=== PATIENT | male | born 1940 | race Caucasian/White ===

== ENCOUNTER 2016-12-08 10:20 | Day surgery (SDC) | payer MEDICARE, OTHER ==
[~2016-12-08 10:20] MED LIST: Buffered Lidocaine 1% SYR 3ML* 3 ML/SYR SYRINGE INTRADERM ONE; Sodium Citrate/Citric Acid* 15 ML UDC PO ONE
[2016-12-08] MEDS ORDERED: Sodium Citrate/Citric Acid* 15 ML UDC ONE (10:39)
[2016-12-08] MEDS ORDERED: Oxymetazoline 0.05% NASAL SPR* 15 ML BTL ONE (12:06)
[2016-12-08] MEDS ORDERED: Lidocaine 2% EPI 1:200000 MPF* 20 ML VIAL ONE (12:07)
[2016-12-08] MEDS ORDERED: fentaNYL* 50 MCG/ML 2 ML VIAL (100 MCG VIAL) ONE (13:06)
[2016-12-08] MEDS ORDERED: Lidocaine 2% PF * 5 ML VIAL ONE (13:06)
[2016-12-08] MEDS ORDERED: Propofol* 10 MG/ML 20 ML BTL IV PUSH ONE (13:06)
[2016-12-08] MEDS ORDERED: Dexamethasone IV* 4 MG/ML 1 ML (4 MG) ONE (13:06)
[2016-12-08] MEDS ORDERED: Ondansetron INJ* 2 MG/ML VIAL IV PRN (13:38)
[2016-12-08] MEDS ORDERED: fentaNYL* 50 MCG/ML 2 ML VIAL (100 MCG VIAL) IV PRN (13:38)
[2016-12-08] MEDS ORDERED: Gelatin ADSORBABLE (OPHTH)* OPHTH.FILM ONE (13:45)
[2016-12-08] MEDS ORDERED: Labetalol IV* 5 MG/ML 20 ML VIAL ONE (14:23)
[2016-12-08 15:36] VITALS: BP 139/79
--- NOTE | 2016-12-09 12:16 | OP ---
DATE OF OPERATION: 12/08/16 - [facility] DATE OF : 42 SURGEON: Pete Blake MD ANESTHESIOLOGIST: Leonid Crespo DO ANESTHESIA: General PRE-OP DIAGNOSES: 1. Nasal dyspnea. 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 POST-OP DIAGNOSES: 1. Nasal dyspnea. 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 OPERATIVE PROCEDURE: Septal dermoplasty and repair of left nasal valve collapse. BRIEF HISTORY: This 76-year-old gentleman who previously had nasal surgery 3 times had a synechiae between the lateral nasal valve region and collapse of the nasal valve causing nasal dyspnea on the left side bothersome to the patient. DESCRIPTION OF PROCEDURE: The patient was taken to the operating room. General anesthetic was given. The patient was intubated with LMA. Nose was decongested with Afrin placed pledgets. Subsequently, infiltrated 2% lidocaine with 1:200,000 epinephrine into the septal mucosa then into the aerations and into the intercartilaginous incision between the lateral aidan and the upper lateral cartilage. I subsequently lysed the adhesions and there was quite a significant mucosal defect. Once this was done, I resected a portion of the cartilage for grafting into the nasal valve region as a bridger type graft. Subsequently, since there was a defect, I harvested a skin graft from the left anterior to the ear to the dermal graft, and then I inserted this into the defect in the nasal valve region superiorly and secured in place with 3-0 chromic sutures multiple mattress type. I then fashioned a small piece of stenting of Jaylan splint, which was coated with Gelfilm and I placed it between the upper aidan and lower aidan junction trying to reduce the chances of readhesion. Once this was secured in place with 2-0 silk, I then turned my attention to the left nasal valve region. I made a little pocket into the junction over the upper lateral cartilage and the lower lateral cartilage at the lower aidan and then I placed in a julissa-shaped piece of cartilage then the pocket was closed with chromic. The patient tolerated this procedure without any complications. Minimal blood loss. The patient was then awakened and sent to recovery room in stable condition. Instrument and sponge counts were correct. Blood loss was minimal. [id number]/[facility] #: [id number] [facility]
== END 2016-12-08 15:40 | disposition home or self-care (01) ==
LOC: OR 10:20
PROVIDERS: ATTEND Otolaryngology
DX: M95.0 Acquired deformity of nose (principal); J34.89 Other specified disorders of nose and nasal sinuses; G47.33 Obstructive sleep apnea (adult) (pediatric); I10 Essential (primary) hypertension
CPT/HCPCS: A9270-GY; J1100; J2704; J3010

== ENCOUNTER 2018-11-22 13:54 | Emergency (ER) | payer MEDICARE, OTHER ==
[2018-11-22 14:19] VITALS: BP 133/77
--- NOTE | 2018-11-22 14:42 | UC ---
UC General HPI - HPI Summary HPI Summary: sudden soreness to upper edge of belly button x 2 days. no abdominal pain. no fever. no n/v/d. admits to mild swelling at site. - History of Current Complaint Chief Complaint: UCAbdominalPain Stated Complaint: STOMACH CONCERN - SKIN Time Seen by Provider: 11/22/18 14:35 Hx Obtained From: Patient Pain Intensity: 4 - Allergy/Home Medications Allergies/Adverse Reactions: Allergies Allergy/AdvReac Type Severity Reaction Status Date / Time No Known Allergies Allergy Verified 11/22/18 14:06 PMH/Surg Hx/FS Hx/Imm Hx Endocrine History: Dyslipidemia Cardiovascular History: Hypertension, Other - valve replaced - Surgical History Surgical History: Yes Surgery Procedure, Year, and Place: 1993 BILATERAL KNEE REPLACEMENT, [place]. 2003 LAPAROSCOPIC BILATERAL INGUINAL HERNIA REPAIR WITH MESH, [facility] [place]. 2004 OPEN REPAIR RECURRENT RIGHT INGUINAL HERNIA WITH MESH, [facility] [place]. 2011 OPEN HEART SURGERY WITH AORTIC VALVE REPLACEMENT, [place], [facility]. 2011 SEPTOPLASTY, INFERIOR TURBINATE REDUCTION AND OUTFRACTURE, [facility] [place]. 2013 LEFT ROTATOR CUFF REPAIR, [place]. BILATERAL CATARACT EXTRACTION WITH IOL IMPLANTS, [facility] [place]. COLONOSCOPY, [place] - Family History Known Family History: Positive: Cardiac Disease, Hypertension - Social History Alcohol Use: Occasionally Substance Use Type: None Smoking Status (MU): Former Smoker Type: Cigarettes Amount Used/How Often: < 1PPD X 5-6 YEARS Length of Time of Smoking/Using Tobacco: 5-6 YEARS Have You Smoked in the Last Year: No When Did the Patient Quit Smoking/Using Tobacco: 1969'S - Immunization History Most Recent Tetanus Shot: 2012 Review of Systems All Other Systems Reviewed And Are Negative: Yes Constitutional: Positive: Negative Skin: Positive: Negative Eyes: Positive: Negative ENT: Positive: Negative Respiratory: Positive: Negative Cardiovascular: Positive: Negative Gastrointestinal: Negative: Abdominal Pain, Vomiting, Diarrhea, Nausea Genitourinary: Positive: Negative Motor: Positive: Negative Neurovascular: Positive: Negative Musculoskeletal: Positive: Negative Neurological: Positive: Negative Psychological: Positive: Negative Physical Exam Triage Information Reviewed: Yes Appearance: Well-Appearing Vital Signs: Initial Vital Signs Temp 98.2 F 11/22/18 14:13 Pulse 72 11/22/18 14:13 Resp 20 11/22/18 14:13 BP 133/77 11/22/18 14:13 Pulse Ox 97 01/30/19 14:13 Vital Signs Reviewed: Yes Eyes: Positive: Conjunctiva Clear ENT: Positive: Normal ENT inspection Neck: Positive: Supple, Nontender Respiratory: Positive: Lungs clear, Normal breath sounds Cardiovascular: Positive: RRR Abdomen Description: Positive: Other: - Upper half of umbilical area is mildly swollen. It is firm and tender with palpation. No red or drainage.. Negative: No Organomegaly, CVA Tenderness (R), CVA Tenderness (L), Distended, Guarding, Hepatomegaly, Peritoneal Signs, Pulsatile Mass, Splenomegaly Bowel Sounds: Positive: Present Musculoskeletal: Positive: ROM Intact Neurological: Positive: Alert Psychological: Positive: Age Appropriate Behavior Skin Exam: Normal Skin: Negative: Rashes Diagnostics - Radiology No standard instances Radiology Interpretation Completed By: Radiologist - abdominal u/s limited= IMPRESSION: NO HERNIA IS SEEN, IF THE PATIENT'S SYMPTOMS PERSIST CONSIDER CT IMAGING FOR FURTHER EVALUATION. ct abd/pelvis=No hernia is identified. No evidence of obstructive uropathy is noted. Course/Dx - Course Course Of Treatment: hx and pe d/w dr lopez. he examine pt post u/s. we agreed to non contrast CT. - Differential Dx - Multi-Symptom Differential Diagnoses: Other - mm strain. hernia. no concern for infection. there was no hernia on u/s or CT. - Diagnoses Provider Diagnosis: Abdominal wall strain Discharge - Sign-Out/Discharge Documenting (check all that apply): Patient Departure All imaging exams completed and their final reports reviewed: Yes - Discharge Plan Condition: Stable Disposition: HOME Patient Education Materials: Muscle Strain (ED) Referrals: Gray Rodríguez MD [Primary Care Provider] - 7 Days - Billing Disposition and Condition Condition: STABLE Disposition: Home
== END 2018-11-22 15:55 | disposition home or self-care (01) ==
LOC: UCCORT 13:54
DX: S39.011A Strain of muscle, fascia and tendon of abdomen, initial encounter (principal); X58.XXXA Exposure to other specified factors, initial encounter; Y92.9 Unspecified place or not applicable; Z95.2 Presence of prosthetic heart valve; Z96.653 Presence of artificial knee joint, bilateral; Z87.891 Personal history of nicotine dependence
CPT/HCPCS: 74176; 76705; 99211; G0463

== ENCOUNTER 2019-02-02 11:09 | Emergency (ER) | payer MEDICARE, OTHER ==
[2019-02-02 11:52] VITALS: BP 135/65
--- NOTE | 2019-02-02 11:58 | UC ---
UC General HPI - HPI Summary HPI Summary: L ear irritated on and off for 2 months. Pt notes it seemed dry and itchy. he placed some drops of oil in the ear which seemed to help. his network designer suggested he have his ears checked. they felt the L looked red. no uri, fever or discharge f4rom the ears. - History of Current Complaint Stated Complaint: BILATERAL EAR CONCERN Time Seen by Provider: 02/02/19 11:50 Hx Obtained From: Patient Associated Signs & Symptoms: Negative: Fever - Allergy/Home Medications Allergies/Adverse Reactions: Allergies Allergy/AdvReac Type Severity Reaction Status Date / Time No Known Allergies Allergy Verified 02/02/19 11:48 PMH/Surg Hx/FS Hx/Imm Hx Endocrine History: Dyslipidemia Cardiovascular History: Hypertension - Surgical History Surgical History: Yes Surgery Procedure, Year, and Place: 1993 BILATERAL KNEE REPLACEMENT, [place]. 2003 LAPAROSCOPIC BILATERAL INGUINAL HERNIA REPAIR WITH MESH, [facility] [place]. 2004 OPEN REPAIR RECURRENT RIGHT INGUINAL HERNIA WITH MESH, [facility] [place]. 2011 [facility] 2011 SEPTOPLASTY, INFERIOR TURBINATE REDUCTION AND OUTFRACTURE, [facility] [place]. 2013 LEFT ROTATOR CUFF REPAIR, [place]. BILATERAL CATARACT EXTRACTION WITH IOL IMPLANTS, [facility] [place]. COLONOSCOPY, [place] - Family History Known Family History: Positive: Cardiac Disease, Hypertension - Social History Occupation: Retired Alcohol Use: Occasionally Substance Use Type: None Smoking Status (MU): Former Smoker Type: Cigarettes Amount Used/How Often: < 1PPD X 5-6 YEARS Length of Time of Smoking/Using Tobacco: 5-6 YEARS Have You Smoked in the Last Year: No When Did the Patient Quit Smoking/Using Tobacco: - Immunization History Most Recent Tetanus Shot: 2012 Review of Systems All Other Systems Reviewed And Are Negative: Yes ENT: Positive: Other - L ear irritation Physical Exam Triage Information Reviewed: Yes Appearance: Well-Appearing Vital Signs Reviewed: Yes Eyes: Positive: Conjunctiva Clear ENT: Positive: Pharynx normal, TMs normal, Other - Only scant deep red to brown cerumen in canals. L canal and adjacent external ear are dry. No auricular adenopathy or mastoid tenderness.. Negative: Nasal congestion, Nasal drainage Neck: Positive: Supple, Nontender, No Lymphadenopathy Respiratory: Positive: No respiratory distress Musculoskeletal: Positive: ROM Intact Neurological: Positive: Alert Psychological: Positive: Age Appropriate Behavior Skin Exam: Normal Course/Dx - Differential Dx - Multi-Symptom Differential Diagnoses: Other - No concern for cerumen impaction, mastoiditis or OM. Will tx L ear with cortisporin suspension for the dryness and irriattion. - Diagnoses Provider Diagnosis: Itching of ear Discharge - Sign-Out/Discharge Documenting (check all that apply): Patient Departure All imaging exams completed and their final reports reviewed: No Studies - Discharge Plan Condition: Stable Disposition: HOME Prescriptions: Neomyc/Polym/HC 1% OTIC SUSP* [Cortisporin Otic Susp 1%*] 4 drop LEFT EAR TID 7 Days #1 btl Patient Education Materials: Earache (ED) Referrals: Gray Rodríguez MD [Primary Care Provider] - 7 Days - Billing Disposition and Condition Condition: STABLE Disposition: Home - Attestation Statements Provider Attestation: Per institutional requirements, I have reviewed the chart, however, I was not consulted specifically or made aware of this patient by the midlevel provider. I did not personally evaluate, interact with , or disposition this patient.
== END 2019-02-02 12:14 | disposition home or self-care (01) ==
LOC: UCCORT 11:09
DX: H83.2X2 Labyrinthine dysfunction, left ear (principal); E78.5 Hyperlipidemia, unspecified; I10 Essential (primary) hypertension; Z87.891 Personal history of nicotine dependence
CPT/HCPCS: 99212; G0463

== ENCOUNTER 2019-05-11 08:23 | Emergency (ER) | payer MEDICARE, OTHER ==
[2019-05-11 08:47] VITALS: BP 132/69
--- NOTE | 2019-05-11 09:07 | ED ---
Throat Pain/Nasal Congestion - HPI Summary HPI Summary: 78 yr old male with the complaint of pain in left ear. onset over the past week. He wears hearing aids. He has problems from time to time with wax buildup. He states the left ear is painful every time he tries to put his hearing aid in. He had otitis externa recently in the same ear. - History of Current Complaint Chief Complaint: UCEar Time Seen by Provider: 05/11/19 08:40 - Allergies/Home Medications Allergies/Adverse Reactions: Allergies Allergy/AdvReac Type Severity Reaction Status Date / Time No Known Allergies Allergy Verified 05/11/19 08:47 Home Medications: Home Medications Calcium Citrate 250 mg PO DAILY 05/11/19 [History Confirmed 05/11/19] PMH/Surg Hx/FS Hx/Imm Hx Endocrine/Hematology History: Denies: Hx Diabetes, Hx Thyroid Disease Cardiovascular History: Reports: Hx Hypertension, Hx Valvular Heart Disease - 2012 AORTIC VALVE REPLACEMENT - [facility], Other Cardiovascular Problems/Disorders - CHOLESTEROL CONTROL WITH MEDS Denies: Hx Pacemaker/ICD Respiratory History: Reports: Hx Sleep Apnea Denies: Hx Asthma, Hx Chronic Obstructive Pulmonary Disease (COPD) GI History: Reports: Hx Ulcer - IN THE PAST AGE 21 Sensory History: Reports: Hx Cataracts - HX OF, Hx Contacts or Glasses - GLASSES , Hx Hearing Aid - BILATERAL Opthamlomology History: Reports: Hx Cataracts - HX OF, Hx Contacts or Glasses - GLASSES Psychiatric History: Denies: Hx Eating Disorder, Hx Panic Disorder, Hx of Violent Episodes Against Others - Surgical History Surgery Procedure, Year, and Place: 1993 BILATERAL KNEE REPLACEMENT, [place]. 2003 LAPAROSCOPIC BILATERAL [place]GUIN[place] [facility] [place]PAIR RECURRENT RIGHT [place]GUINAL [place] [facility] [place] 2012 OPEN HEART SURGERY WITH AORTIC VALVE REPLACEMENT, [place], [place]. 2012 SEPTOPLASTY, INFERIOR TURBINATE REDUCTION AND OUTFRACTURE[place] [facility] [place]. 2013 LEFT ROTATOR CUFF REPAIR, [place]. BILATERAL CATARACT [place]TRA[place] WITH [place] IMPLANTS[place] [facility] [place] Hx Anesthesia Reactions: No Infectious Disease History: No Infectious Disease History: Denies: Traveled Outside the [place] in Last 30 Days - Family History Known Family History: Positive: Cardiac Disease, Hypertension - Social History Occupation: Retired Lives: With Family Alcohol Use: Occasionally Substance Use Type: Reports: None Smoking Status (MU): Former Smoker Type: Cigarettes Amount Used/How Often: < 1PPD X 5-6 YEARS Length of Time of Smoking/Using Tobacco: 5-6 YEARS Have You Smoked in the Last Year: No Review of Systems Constitutional: Negative Positive: Ear Ache All Other Systems Reviewed And Are Negative: Yes Physical Exam Triage Information Reviewed: Yes Vital Signs On Initial Exam: Initial Vitals Temp Pulse Resp BP Pulse Ox 97.1 F 71 16 132/69 97 05/11/19 08:44 05/11/19 08:44 05/11/19 08:44 05/11/19 08:44 05/11/19 08:44 Vital Signs Reviewed: Yes Appearance: Positive: Well-Appearing, No Pain Distress Skin: Positive: Warm, Skin Color Reflects Adequate Perfusion Head/Face: Positive: Normal Head/Face Inspection Eyes: Positive: EOMI, KARTHIK ENT: Positive: TMs normal, Other - left external canal with cerumen. Neck: Positive: Nontender Respiratory/Lung Sounds: Positive: Clear to Auscultation, Breath Sounds Present Cardiovascular: Positive: RRR. Negative: Murmur Abdomen Description: Negative: Distended Musculoskeletal: Positive: Strength/ROM Intact Neurological: Positive: Sensory/Motor Intact, Alert, Oriented to Person Place, Time, CN Intact II-III, Normal Gait, Speech Normal Psychiatric: Positive: Normal - Macey Coma Scale Best Eye Response: 4 - Spontaneous Best Motor Response: 6 - Obeys Commands Best Verbal Response: 5 - Oriented Coma Scale Total: 15 Diagnostics - Vital Signs Vital Signs Temp Pulse Resp BP Pulse Ox 05/11/19 08:44 97.1 F 71 16 132/69 97 - Laboratory Lab Statement: Any lab studies that have been ordered have been reviewed, and results considered in the medical decision making process. Re-Evaluation - Re-Evaluation First Eval Re-Evaluation Time: 09:06 Change: Improved Comment: ear wax gone after irrigation. Cortisporin prescribed. EENT Course/Dx - Course Course Of Treatment: 78 yr old with left otitis externa revealed after cleaning wax out. Cortisporin prescribed. - Diagnoses Provider Diagnoses: Otitis externa Discharge - Sign-Out/Discharge Documenting (check all that apply): Patient Departure All imaging exams completed and their final reports reviewed: No Studies - Discharge Plan Condition: Good Disposition: HOME Prescriptions: Neomyc/Polym/HC 1% OTIC SUSP* [Cortisporin Otic Susp 1%*] 4 drop LEFT EAR TID # 1 btl Patient Education Materials: Otitis Externa (ED), Cerumen Impaction (ED) Referrals: Gray Rodríguez MD [Primary Care Provider] - 2 Days - Billing Disposition and Condition Condition: GOOD Disposition: Home
== END 2019-05-11 09:07 | disposition home or self-care (01) ==
LOC: UCCORT 08:23
DX: H60.92 Unspecified otitis externa, left ear (principal); Z97.4 Presence of external hearing-aid; I10 Essential (primary) hypertension; Z95.2 Presence of prosthetic heart valve; Z87.891 Personal history of nicotine dependence
CPT/HCPCS: 99212; G0463

== ENCOUNTER 2019-06-04 09:05 | Emergency (ER) | payer MEDICARE, OTHER ==
--- OUTSIDE RECORDS SUMMARY | 2019-06-04 09:12 | XMS REPORT | Continuity of Care Document ---
:1940 External Reference #:[id number] Author Name Doyle Farah Care Team Providers Name Role Phone Gray Rodríguez MD Primary Care Physician Unavailable Payers Date Identification Numbers Payment Provider Subscriber Policy Number: [id number] Medicare Emigdio Danilo PayID: [id number] [address] [place] [address] Expires: 2016 Policy Number: [id number] [employer] Elena Carrasco PayID: [id number] [address] [place] [address] Policy Number: [id number] [employer] Emigdio Carrasco Group Number: [id number] [address] PayID: [id number] [place] [address] Problems Active Problems Provider Date Impacted cerumen Hao Blake M.D. Onset: 03/08/2016 Deviated nasal septum Hao Blake M.D. Onset: 03/08/2016 Disorder of nasal cavity Hao Blake M.D. 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 Onset: 10/11/2016 Dysphagia Hao Blake M.D. Onset: 11/22/2016 Chronic rhinitis Hao Blake M.D. Onset: 01/17/2017 Diffuse otitis externa Hao Blake M.D. Onset: 11/21/2017 Difficulty breathing Hao Blake M.D. Onset: 04/25/2017 Family History Date Family Member(s) Observation Comments General Heart Murmur Social History Type Date Description Comments Sex Unknown Occupation Catering Coordinator Tobacco Use Start: Unknown Never Smoked Cigarettes Tobacco Use Start: Unknown Never Smoked Cigars Tobacco Use Start: Unknown Never Smoked A Pipe ETOH Use Occasionally consumes alcohol Tobacco Use Start: Unknown Patient has never smoked Smoking Status Reviewed: 05/29/19 Patient has never smoked Allergies, Adverse Reactions, Alerts Description No Known Drug Allergies Medications Active Medications SIG Qnty Indications Ordering Provider Date GTF Ghiomium 100MG 1 tab by mouth Unknown daily Zinc 1 tab by mouth Unknown 50mg Tablets daily Neomycin/Polymyxin/Hydr 4 gtts left ear Unknown o three times a day Synergistic [facility] Unknown [facility] Triple Magnesium 1 tab by mouth Unknown Complex daily 400mg Capsules Ubiquinol 1 by mouth every Unknown 100mg Capsules day Calcium Citrate 1 tab by mouth Unknown 200mg daily Tablets Glucosamine Chondroitin 1 by mouth every Unknown Maximum Strength day Capsules Ezetimibe 1 by mouth every Unknown 10mg Tablets day Venlafaxine HCL ER 1 tab by mouth Unknown 75mg twice daily Caps ER 24HR Amlodipine Besylate 1 by mouth every Unknown 5mg day Tablets Rosuvastatin Calcium 1 by mouth every Unknown 20mg day Tablets Omeprazole 1 by mouth every Unknown 20mg Capsules DR day Aspir-Low 1 by mouth every Unknown 81mg Tablets DR day [place] 3 4 by mouth qd. Unknown 1000mg Capsules Flaxseed Oil 1 by mouth every Unknown 1000mg day Capsules Vitamin D3 Adult 2 tabs chewed Unknown Gummies daily 1000Unit Chewtabs History Medications No Active Medications Unknown 03/08/2016 - 10/11/2016 Simvastatin 1 po qd 90tabs Gray Rodríguez, - 40mg Tablets 03/08/2015 Motrin Ib 1000 MG bid 60tabs Unknown - 500mg Tablets 03/08/2015 Cranberry 1 by mouth every Unknown - 450mg Tablets day 05/28/2019 Liquid Kelp 25 ml po qday Unknown - 05/28/2019 Amoxicillin Take One Capsule Unknown - 500mg By Mouth Three 11/20/2017 Capsules Times A Day Vital Signs Date Vital Result Comment 05/29/2019 11:51am Height 66 inches 5'6" Heart Rate 69 /min BP Systolic Sitting 128 mmHg BP Diastolic Sitting 86 mmHg Respiratory Rate 20 /min Body Temperature 98.6 F Pain Level 0 O2 % BldC Oximetry 92 % 11/21/2017 2:09pm Height 66 inches 5'6" Weight 178.00 lb Heart Rate 72 /min BP Systolic Sitting 126 mmHg BP Diastolic Sitting 74 mmHg Respiratory Rate 16 /min Pain Level 0 BMI (Body Mass Index) 28.7 kg/m2 04/04/2017 2:24pm Height 66 inches 5'6" Weight 178.00 lb Heart Rate 66 /min BP Systolic Sitting 120 mmHg BP Diastolic Sitting 76 mmHg Respiratory Rate 16 /min BMI (Body Mass Index) 28.7 kg/m2 01/17/2017 2:20pm Weight 178.00 lb Heart Rate 80 /min BP Systolic 118 mmHg BP Diastolic 88 mmHg Respiratory Rate 20 /min Pain Level 0 O2 % BldC Oximetry 96 % 12/20/2016 4:08pm BP Systolic Sitting 152 mmHg Recheck-pt to Fup with BP Diastolic Sitting 90 mmHg Recheck-pt to Fup with 12/20/2016 3:49pm Height 66 inches 5'6" Heart Rate 84 /min BP Systolic 148 mmHg BP Diastolic 106 mmHg Respiratory Rate 24 /min Pain Level 6 O2 % BldC Oximetry 97 % 12/13/2016 2:36pm Height 66 inches 5'6" Weight 180.00 lb Heart Rate 82 /min BP Systolic Sitting 124 mmHg BP Diastolic Sitting 80 mmHg Respiratory Rate 18 /min Body Temperature 98.6 F O2 % BldC Oximetry 96 % BMI (Body Mass Index) 29.0 kg/m2 11/22/2016 2:28pm Height 66 inches 5'6" Weight 180.00 lb BP Systolic Sitting 128 mmHg BP Diastolic Sitting 80 mmHg Body Temperature 99.1 F BMI (Body Mass Index) 29.0 kg/m2 10/11/2016 2:57pm Height 66 inches 5'6" Weight 180.00 lb Heart Rate 80 /min BP Systolic 132 mmHg BP Diastolic 66 mmHg BMI (Body Mass Index) 29.0 kg/m2 04/24/2012 11:16am Heart Rate 80 /min BP Systolic Sitting 124 mmHg BP Diastolic Sitting 80 mmHg Procedures Date Code Description Status 12/08/2016 72533 Dermatoplasty Septal Or Intranasal Completed 12/08/2016 75411 Repair Nasal Vestibular Stenosis Completed 12/08/2016 78223 Remove Cartilage For Graft Nasal Septum Completed 11/22/2016 90023 Fibroptic Laryngoscopy Completed 10/11/2016 00889 Remove Impacted Cerumen Completed 03/08/2016 76784 Remove Impacted Cerumen Completed 04/24/2012 62212 Endoscopic Nasal Cautery Completed Encounters Type Date Location Provider Dx Diagnosis Office Visit 11/21/2017 [facility] J34.2 Deviated nasal 2:00p [facility] Atif septum [place] H60.312 Diffuse otitis externa, left ear Office Visit 04/25/2017 2:00p [facility] J31.0 Chronic [facility] Debra rhinitis [place] R06.09 Other forms of dyspnea R13.10 Dysphagia, unspecified Office Visit 04/04/2017 2:00p [facility] J31.0 Chronic [facility] Atif rhinitis Azam R06.09 Other forms of dyspnea R09.81 Nasal congestion Office Visit 11/22/2016 2:30p [facility] J34.2 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 Atif cerumen, Azam bilateral J34.2 Deviated nasal septum Office Visit 04/24/2012 10:30a [facility], [facility]84[facility] Future Appointment(s):06/05/2019 10:45 am - Hao Blake M.D. at [facility] Bjtjuwxf55/29/2018 - Hao Blake M.D.J34.2 Deviated nasal aylgkqB15.312 Diffuse otitis externa, left earComments:After cleaning the ear I instilled some Chloromycetin boric acid powder in the left ear I suggest recheck back in about one week if not improved. We did discussed revision resection of the scar tissueof the septum. He'll call us back to schedule for this it'll have to be done in [place].
[2019-06-04 09:20] VITALS: BP 131/62
--- NOTE | 2019-06-04 09:23 | UC ---
Knee Pain HPI - HPI Summary HPI Summary: 78-year-old male who caught his right heel on a step and he hyperflexed his right knee 2 weeks ago. He states he has had continued pain to the lateral right knee since then however he is able to walk. He wears an elastic knee brace. He has had a right knee replacement approximately 2 years ago. He states normally he is only able to flex his right leg approximately 45 but when he injured it flexed completely which caused the pain to the lateral aspect. - History of Current Complaint Chief Complaint: UCLowerExtremity Stated Complaint: RIGHT KNEE INJURY Time Seen by Provider: 06/04/19 09:19 Hx Obtained From: Patient Onset/Duration: Sudden Onset Severity Initially: Moderate Severity Currently: Mild Pain Intensity: 0 Character: Dull, Aching Aggravating Factor(s): Movement, Weight Bearing Alleviating Factor(s): Rest Associated Signs And Symptoms: Positive: Negative Able to Bear Weight: Yes - Allergies/Home Medications Allergies/Adverse Reactions: Allergies Allergy/AdvReac Type Severity Reaction Status Date / Time No Known Allergies Allergy Verified 06/04/19 09:16 Home Medications: Home Medications Ibuprofen TAB* [Advil TAB*] 400 mg PO Q6H PRN 06/04/19 [History Confirmed ] PMH/Surg Hx/FS Hx/Imm Hx Previously Healthy: Yes Cardiovascular History: Hypertension Psychological History: Depression - Surgical History Surgical History: Yes Surgery Procedure, Year, and Place: 1993 BILATERAL KNEE REPLACEMENT, [place]. 2003 LAPAROSCOPIC BILATERAL INGUINAL HERNIA REPAIR WITH MESH, [facility] [place]. 2004 OPEN REPAIR RECURRENT RIGHT INGUINAL HERNIA WITH MESH, [facility] [place]. 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 2012 SEPTOPLASTY, INFERIOR TURBINATE REDUCTION AND OUTFRACTURE, [facility] [place]. 2013 LEFT ROTATOR CUFF REPAIR, [place]. BILATERAL CATARACT EXTRACTION WITH IOL IMPLANTS, [facility] [place]. COLONOSCOPY, [place] - Family History Known Family History: Positive: Cardiac Disease, Hypertension - Social History Alcohol Use: Occasionally Substance Use Type: None Smoking Status (MU): Former Smoker Type: Cigarettes Amount Used/How Often: < 1PPD X 5-6 YEARS Length of Time of Smoking/Using Tobacco: 5-6 YEARS Have You Smoked in the Last Year: No When Did the Patient Quit Smoking/Using Tobacco: - Immunization History Most Recent Tetanus Shot: 2013 Review of Systems All Other Systems Reviewed And Are Negative: Yes Motor: Positive: Decreased ROM - Patient normally has decreased flexion of the right leg and knee since he had the knee replacement. Neurovascular: Positive: Negative Musculoskeletal: Positive: Decreased ROM Neurological: Positive: Negative Psychological: Positive: Negative Is Patient Immunocompromised?: No Physical Exam Triage Information Reviewed: Yes Appearance: Well-Appearing, No Pain Distress, Well-Nourished Vital Signs: Initial Vital Signs Temp 98.1 F 06/04/19 09:12 Pulse 75 06/04/19 09:12 Resp 18 06/04/19 09:12 BP 131/62 06/04/19 09:12 Pulse Ox 96 06/04/19 09:12 Vital Signs Reviewed: Yes Musculoskeletal: Positive: Strength Intact, No Edema, ROM Limited @ - Patient normally has limited right knee flexion to approximately 45., Other: - Mild tenderness on palpation to the lateral aspect of his right knee, no deformity, erythema, bruising or swelling is noted Neurological: Positive: Alert, Muscle Tone Normal - Good peripheral pulses neuro sensation capillary refill. Psychological Exam: Normal Skin Exam: Normal Knee Pain Course/Dx - Course Course Of Treatment: Right knee x-ray:BONE DENSITY: There is diffuse osteopenia. BONES: The patient is status post right knee arthroplasty. There is periprosthetic lucency along the tibial component.. JOINTS: The patient is status post right knee arthroplasty. ALIGNMENT: There is no dislocation. SOFT TISSUES: There is peripheral arterial calcification. OTHER FINDINGS: None. IMPRESSION: 1. OSTEOPENIA. 2. STATUS POST RIGHT KNEE ARTHROPLASTY, WITH PERIPROSTHETIC LUCENCY ALONG THE TIBIAL COMPONENT CONCERNING FOR LOOSENING. 3. PERIPHERAL ARTERIAL DISEASE. 4. NO ACUTE OSSEOUS INJURY. THE DEGREE OF OSTEOPENIA MAY MAKE A NONDISPLACED FRACTURE RADIOGRAPHICALLY OCCULT. IF SYMPTOMS PERSIST, RECOMMEND REPEAT IMAGING. . The patient prefers to see his specialist in [place] for further follow-up. He may use the knee brace as necessary and ambulate as pain permits. - Differential Dx/Diagnosis Provider Diagnosis: Strain of right knee Discharge - Sign-Out/Discharge Documenting (check all that apply): Patient Departure All imaging exams completed and their final reports reviewed: Yes - Discharge Plan Condition: Good Disposition: HOME Patient Education Materials: Knee Pain (ED) Referrals: Gray Rodríguez MD [Primary Care Provider] - Additional Instructions: You may try heat to the sore area and then follow-up with your orthopedist in [place]. Call today and make an appointment. - Billing Disposition and Condition Condition: GOOD Disposition: Home - Attestation Statements Provider Attestation: This patient was not seen by me. I was available for consult. ROJELIO
== END 2019-06-04 10:15 | disposition home or self-care (01) ==
LOC: UCCORT 09:05
DX: S83.91XA Sprain of unspecified site of right knee, initial encounter (principal); W23.0XXA Caught, crushed, jammed, or pinched between moving objects, initial encounter; Y93.01 Activity, walking, marching and hiking; Y92.9 Unspecified place or not applicable; Z96.653 Presence of artificial knee joint, bilateral; I10 Essential (primary) hypertension; Z87.891 Personal history of nicotine dependence
CPT/HCPCS: 99211; G0463

== ENCOUNTER 2019-11-18 07:52 | Emergency (ER) | payer MEDICARE, OTHER ==
--- OUTSIDE RECORDS SUMMARY | 2019-11-18 08:04 | XMS REPORT | Summary of Care ---
:1940 Author Organization [facility] Address [address] [facility] [place] [address] Care Team Providers Name Role Phone Gray Rodríguez Primary Care Provider Salvador Villatoro MD Unavailable Miguel Angel Singh Unavailable Laura Campbell RN Unavailable Unavailable Reason for Visit Reason Comments Pre-op Exam Patient is having surgery for chronic nasal congestion. 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 0 Active 220 MG Oral Cap Aspirin 81 MG Oral Take 1 Tab by 30 Tab 0 07/23/2015 Active TabIndications: S/P AVR mouth DAILY. 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 Oral Tab Flaxseed, Linseed, Take by mouth. 0 Active (FLAX SEED OIL) 1000 MG Oral Cap Oyfetlo-Jfnoxncez-Jbsfc Take by mouth. 0 Active in D (CALCIUM MAGNESIUM PO) Avanafil (STENDRA) 200 Take by mouth 0 Active MG Oral Tab NEEDED. venlafaxine (EFFEXOR TAKE 1 CAPSULE 180 Cap 3 11/29/2018 Active XR) 150 MG Oral CAPSULE BY MOUTH TWICE SR 24 HR DAILY Rosuvastatin Calcium Take 1 Tab by 90 Tab 3 03/01/2019 Active (CRESTOR) 20 MG Oral mouth DAILY. 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 silver sulfadiazine Apply to burn 50 g 1 08/21/2019 Active (THERMAZENE, SILVADENE) site on right 1 % Apply externally foot twice a Cream day Magnesium 400 MG Oral Take 1 Tab by 0 Active Tab mouth DAILY. Cejeiop-Afxiwv-Eg Take 1 Tab by 0 Active Chondr-MSM mouth DAILY. [id number] MG Oral Tab Zinc 50 MG Oral Cap Take 1 Cap by 0 Active mouth DAILY. GTF CHROMIUM PO Take 100 mcg by 0 Active mouth DAILY. Amoxicillin 500 MG Oral Take 4 Tabs by 4 Tab 11 10/25/2019 10/26/2019 Active Tab mouth ONE TIME for 1 dose. 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 Appropriate heart rate and blood pressure response to exercise. Normally functioning bioprosthetic aortic valve. Cardiac cath 2012 non obstructive disease This test is equivocal for ischemia by symptoms (limiting dyspnea), negative for ischemia by EKG, and negative for ischemia by echocardiographic imaging at an adequate cardiac workload, as described. Dyspnea in the absence of EKG changes and echocardiographic evidence of ischemia most likely represents non-coronary pathology and/or deconditioning. Essential hypertension, benign 01/15/2014 S/P AVR (aortic valve replacement) 12/25/2012 Overview: 2011 Colon polyps 07/06/2012 Overview: Colonoscopy 2009 recommended repeat colonoscopy 2012 Impotence of organic origin 03/23/2011 History of tobacco use 02/17/2010 Obesity 02/11/2010 Overview: BMI 30 10 Mixed hyperlipidemia 11/06/2007 Osteoarthritis, knee 11/06/2007 Overview: Bilateral knee replacement RISHABH Condon 2001 documented as of this encounter (statuses as of 10/25/2019) Resolved Problems Problem Noted Date Resolved Date Coronary artery disease involving lovelock heart 11/14/2018 10/25/2019 Depression with anxiety 07/01/2015 08/30/2017 Trigger thumb 02/16/2012 07/01/2014 Depression 02/17/2010 03/23/2011 Inguinal hernia 02/17/2010 08/02/2016 Anxiety 10/18/2008 03/23/2011 Severe aortic stenosis 03/11/2008 07/01/2014 Overview: 06/08/10: Echocardiogram Aortic Valve The mean and peak gradients across the aortic valve are 44 mmHg and 67 mmHg respectively. The aortic valve is tricuspid , severely calcified, with severely restricted mobility. Aortic valve are by continuity equation is .8cm2. FINAL IMPRESSION: Severe Calcific Aortic Stenosis Stress echocardiogram negative 2011 Normal LV systolic function, LVEF 60% Normal atria, right heart No significant mitral valve disease No effusion compared to previous echo aortic stenosis has worsened Palpitations 11/06/2007 02/11/2010 Aortic valve disorders 11/06/2007 03/11/2008 Hemorrhage of gastrointestinal tract, unspecified 03/07/2007 02/11/2010 Trigger finger (acquired) 01/03/2007 08/15/2013 documented as of this encounter (statuses as of 10/25/2019) Immunizations Name Administration Dates Next Due Influenza (IM) Preservative Free 08/24/2017, 07/26/2011 Influenza Vaccine 65 Yrs + 08/21/2019 Influenza Vaccine High Dose 10/30/2018, 10/30/2017, 08/02/2016, 07/01/2014 Influenza Vaccine Whole 08/29/2007 Influenza Virus Vaccine Pres Free 6-35 07/06/2012 Months PNEUMOCOCCAL POLYSACCHARIDE VACCINE 02/11/2010 Pneumococcal Conjugate(13 Valent) 08/02/2016 TDAP Vaccine 08/21/2019 TETANUS & DIPHTHERIA TOXOID (OVER 7 03/19/2009 YRS) Tetanus Vaccine 01/10/2007 ZOSTER (ZOSTAVAX) VACCINE 07/03/2013 dT Vaccine 01/10/2007 documented as of this encounter Social History Tobacco Use Types Packs/Day Years Used Date Former Smoker Cigarettes 0.25 2 Quit: 10/24/1961 Smokeless Tobacco: Never Used Comments: pt quit smoking approx 40 yrs ago. Alcohol Use Drinks/Week oz/Week Comments No 0 Standard drinks or equivalent 0.0 drinks socially-approx 1-2 drinks q week Social Isolation Answer Date Recorded In a typical week, how many times do you Not asked talk on the phone with family, friends, or neighbors? How often do you get together with friends More than three times a week 11/27 or relatives? How often do you attend buddhism or More than 4 times per year 11/27/2018 synagogue services? Do you belong to any clubs or Yes 11/27/2018 organizations such as buddhism groups, unions, fraternal or athletic groups, or school groups? How often do you attend meetings of the 1 to 4 times per year 11/27/2018 clubs or organizations you belong to? Are you now , , , 11/27/2018 , never or living with a partner? Physical Activity Answer Date Recorded On average, how many days per week do you engage in moderate to 0 days 2018 strenuous exercise (like walking fast, running, jogging, dancing, swimming, biking, or other activities that cause a light or heavy sweat)? On average, how many minutes do you engage in exercise at this 0 min 2018 level? Stress Answer Date Recorded Do you feel stress - tense, restless, nervous, or anxious, Not at all 2018 or unable to sleep at night because your mind is troubled all the time - these days? Financial Resource Strain Answer Date Recorded How hard is it for you to pay for the very basics like Not hard at all 2018 food, housing, medical care, and heating? Intimate Partner Violence Answer Date Recorded Within the last year, have you been afraid of your partner or No 11/27/2018 ex-partner? Within the last year, have you been humiliated or emotionally No 11/27/2018 abused in other ways by your partner or ex-partner? Within the last year, have you been kicked, hit, slapped, or No 11/27/2018 otherwise physically hurt by your partner or ex-partner? Within the last year, have you been raped or forced to have any No 11/27/2018 kind of sexual activity by your partner or ex-partner? Food Insecurity Answer Date Recorded Within the past 12 months, you worried that your food would Never true 2018 run out before you got money to buy more. Within the past 12 months, the food you bought just didn't Never true 2018 last and you didn't have money to get more. Transportation Needs Answer Date Recorded In the past 12 months, has lack of transportation kept you from No 11/27/2018 medical appointments or from getting medications? In the past 12 months, has lack of transportation kept you from No 11/27/2018 meetings, work, or getting things needed for daily living? Sex Assigned at Date Recorded Not on file Job Start Date Occupation Industry Not on file Not on file Not on file Travel History Travel Start Travel End No recent travel history available. documented as of this encounter Last Filed Vital Signs Vital Sign Reading Time Taken Comments Blood Pressure 130/60 10/25/2019 9:12 AM EST Pulse 74 10/25/2019 9:12 AM EST Temperature - - Respiratory Rate - - Oxygen Saturation - - Inhaled Oxygen Concentration - - Weight 88 kg (194 lb) 10/25/2019 9:12 AM EST Height 163.8 cm (5' 4.5") 10/25/2019 9:12 AM EST Body Mass Index 32.79 10/25/2019 9:12 AM EST documented in this encounter Patient Instructions Patient InstructionsGray Rodríguez MD - 10/25/2019 9:00 AM ESTBlood work today Cleared for surgery We can fax clearance form for you No aspirin You can stop the supplements on the list that I x'd out documented in this encounter Progress Notes Gray Rodríguez MD - 10/25/2019 9:00 AM EST PATIENT: Emigdio Carrasco : 1940 DATE OF SERVICE: 10/25/2019 Subjective SUBJECTIVE: Emigdio Carrasco is a 78-y.o. male who presents to the office today for a preoperative consultation at the request of RISHABH Briggs , who will perform a rhinoplasty on 11/05/19. Patient complains of cardiac symptoms: none. Patient denies cardiac symptoms: none. Past history of pulmonary embolism/deep vein thrombosis: no. There is a history of bleeding complications: no Past history of anesthetic problem: no. Exercise capacity: Can you walk 2 blocks on level ground, or carry 2 bags of groceries up 2 flights of stairs? Yes Count the number of risk factors in the revised Granger cardiac risk index. ( RCRI): 0 High risk procedure: eg vascular surgery, any open intraperitoneal or intrathoracic 1 History of ischemic heart disease (history of NH or a positive exercise test , current complaint of chest pain considered to be secondary to myocardial ischemia, use of nitrate therapy, or ECG with pathological Q waves; do not count prior coronary revascularization procedure unless one of the other criteria for ischemic heart disease is present) 0 Hx of CHF, either systolic or diastolic 0 History of cerebrovascular disease (TIA or Stroke) 0 Diabetes mellitus requiring treatment with insulin 0 Preoperative serum creatinine >2.0 mg/dl The risk of cardiac , nonfatal myocardial infarction, and nonfatal cardiac arrest according to the number of above risk predictors is estimated to be: One risk factor - 1.0 percent (95% CI: 0.5 - 1.4) Screening for sleep apnea: known obstructive sleep apnea he is on continuous positive airway pressure Patient Active Problem List Diagnosis Date Noted Moderate episode of recurrent major depressive disorder (HCC) 08/30/2017 Bilateral dry eyes 08/02/[address] Jese KEATING Obstructive sleep apnea 12/20/2014 [facility] respiratory therapy continuous positive airway pressure auto minute pressure 5 and max 15 compliant on 30 day download Rotator cuff tear, right 10/08/[address] Romero 2013 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 Appropriate heart rate and blood pressure response to exercise. Normally functioning bioprosthetic aortic valve. Cardiac cath 2012 non obstructive disease This test is equivocal for ischemia by symptoms (limiting dyspnea), negative for ischemia by EKG, and negative for ischemia by echocardiographic imaging at an adequate cardiac workload, as described. Dyspnea in the absence of EKG changes and echocardiographic evidence of ischemia most likely represents non-coronary pathology and/or deconditioning. Essential hypertension, benign 01/15/2014 S/P AVR (aortic valve replacement) 12/25/2012 2012 Colon polyps 07/06/2012 Colonoscopy 2009 recommended repeat colonoscopy 2012 Impotence of organic origin 03/23/2011 History of tobacco use 02/17/2010 Obesity 02/11/2010 BMI 30 01/31 Mixed hyperlipidemia 11/06/2007 Osteoarthritis, knee 11/06/2007 Bilateral knee replacement [place] 2001 Family History Problem Relation Age of Onset Heart Mother [place] No Known Problems Father No Known Problems Sister No Known Problems Daughter No Known Problems Son No Known Problems Daughter No Known Problems Daughter No Known Problems Sister Current Outpatient Medications Medication Sig amLodipine (NORVASC) 10 MG Oral Tab Take 1 Tab by mouth DAILY. Amoxicillin 500 MG Oral Tab Take 4 Tabs by mouth ONE TIME for 1 dose. Aspirin 81 MG Oral Tab Take 1 Tab by mouth DAILY. Avanafil (STENDRA) 200 MG Oral Tab Take by mouth NEEDED. Fvxwbxx-Rdjeiusyv-Lrcmnme D (CALCIUM MAGNESIUM PO) Take by mouth. cholecalciferol (VITAMIN D) 1000 units Oral Tab Take 1,000 Units by mouth. ezetimibe (ZETIA) 10 MG Oral Tab Take 1 Tab by mouth DAILY. Flaxseed, Linseed, (FLAX SEED OIL) 1000 MG Oral Cap Take by mouth. Iagrnlt-Qjmipc-Kh Chondr-MSM [id number] MG Oral Tab Take 1 Tab by mouth DAILY. GTF CHROMIUM PO Take 100 mcg by mouth DAILY. Magnesium 400 MG Oral Tab Take 1 Tab by mouth DAILY. Naproxen Sodium (ALEVE) 220 MG Oral Cap Take by mouth. Rosuvastatin Calcium (CRESTOR) 20 MG Oral Tab Take 1 Tab by mouth DAILY. silver sulfadiazine (THERMAZENE, SILVADENE) 1 % Apply externally Cream Apply to burn site on right foot twice a day venlafaxine (EFFEXOR XR) 150 MG Oral CAPSULE SR 24 HR TAKE 1 CAPSULE BY MOUTH TWICE DAILY Zinc 50 MG Oral Cap Take 1 Cap by mouth DAILY. No current facility-administered medications for this visit. No Known Allergies Social History Socioeconomic History Marital status: Spouse name: Not on file Number of children: 4 Years of education: Not on file Highest education level: Not on file Occupational History Occupation: Silk Screener Social Needs Financial resource strain: Not hard at all Food insecurity Worry: Never true Inability: Never true Transportation needs Medical: No Non-medical: No Tobacco Use Smoking status: Former Smoker Packs/day: 0.25 Years: 2.00 Pack years: 0.50 Types: Cigarettes Last attempt to quit: 10/24/1961 Years since quittin.0 Smokeless tobacco: Never Used Tobacco comment: pt quit smoking approx 40 yrs ago. Substance and Sexual Activity Alcohol use: No Alcohol/week: 0.0 standard drinks Comment: drinks socially-approx 1-2 drinks q week Drug use: No Sexual activity: Not on file Lifestyle Physical activity Days per week: 0 days Minutes per session: 0 min Stress: Not at all Relationships Social connections Talks on phone: Not on file Gets together: More than three times a week Attends synagogue service: More than 4 times per year Active member of club or organization: Yes Attends meetings of clubs or organizations: 1 to 4 times per year Relationship status: Intimate partner violence Fear of current or ex partner: No Emotionally abused: No Physically abused: No Forced sexual activity: No Other Topics Concern Back Care Not Asked Bike Helmet Not Asked Blood Transfusions Not Asked Caffeine Concern Not Asked Exercise Yes Hobby Hazards Not Asked International Travel Not Asked Service Not Asked Occupational Exposure Not Asked Seat Belt Not Asked Self-Exams Not Asked Sleep Concern Not Asked Special Diet No Stress Concern No Weight Concern Yes Comment: goal wt loss 15-20 lbs Social History Narrative Retire optometric aide Re- and lives in [facility] 4 adult children from first marriage; all local REVIEW OF SYSTEMS: All remaining review of systems was negative. Objective OBJECTIVE: BP 130/60 | Pulse 74 | Ht 5' 4.5" (1.638 m) | Wt 194 lb (88 kg) | BMI 32.79 kg/m The physical exam is generally normal. He appears well, alert and oriented x 3, pleasant and cooperative. Vitals as noted. ENT normal, neck supple and free of adenopathy, or masses. No thyromegaly or carotid bruits. Cranial nerves and fundi normal. Lungs are clear to auscultation. Heart sounds are normal, no murmurs, clicks, gallops or rubs. Abdomen is soft, no tenderness, masses or organomegaly. Extremities, peripheral pulses and reflexes are normal. Testes are normal without masses, no hernias noted. Phallus normal.Screening neurological exam is normal without focal findings. Skin is normal without suspicious lesions. ECG done within last 6 months ASSESSMENT: No contraindications to planned surgery 1. Pre-operative cardiovascular examination 2. 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 Patient requires endocarditis prophylaxis: yes. 2. Recommend perioperative beta-wil: no. 3. Patient requires perioperative deep vein thrombosis prophylaxis: no. 4. General preoperative instructions for patient. Proceed with surgery as planned. No food or liquids the morning of surgery. Call surgeon if develop respiratory illness, fever, or other illness. Take the following medications the morning of surgery amoxicillin 86530 mg Letter sent to requesting surgeon listed above. Written preoperative instructions given.. Patient Instructions Blood work today Cleared for surgery We can fax clearance form for you No aspirin You can stop the supplements on the list that I x'd out Author: Gray Rodríguez MD 10/25/2019 09:30 documented in this encounter Plan of Treatment Date Type Specialty Care Team Description 03/03/2020 Office Visit Cardiology Miguel Angel Singh MD [address] [place] [id number] Name Type Priority Associated Diagnoses Date/Time COMPREHENSIVE METABOLIC Lab Routine Pre-operative 10/25/2019 9:36 AM PANEL cardiovascular EST examination CBC WITH DIFFERENTIAL Lab Routine Pre-operative 10/25/2019 9:36 AM cardiovascular EST examination PARTIAL THROMBOPLASTIN Lab Routine Pre-operative 10/25/2019 9:36 AM TIME cardiovascular EST examination PROTHROMBIN TIME Lab Routine Pre-operative 10/25/2019 9:36 AM cardiovascular EST examination Health Maintenance Due Date Last Done Comments ZOSTER IMMUNIZATION SERIES 08/28/2013 07/03/2013 (2 of 3) DEPRESSION SCREENING 11/27/2019 11/27/2018 FALL RISK ASSESSMENT 11/27/2019 11/27/2018, 11/27/2018 MEDICARE ANNUAL WELLNESS 11/27/2019 11/27/2018, 08/30/2017, VISIT 08/15/2013, Additional history exists DTaP/Tdap/Td Vaccines (4 - 08/21/2029 08/21/2019, 03/19/2009, Tdap) 01/10/2007 PNEUMOCOCCAL 65+YRS Completed 08/02/2016, 02/11/2010 INFLUENZA VACCINE Completed 08/21/2019, 10/30/2018, 10/30/2017, Additional history exists HEPATITIS A IMMUNIZATION Aged Out No longer eligible SERIES based on patient's age to complete this topic HPV IMMUNIZATION SERIES Aged Out No longer eligible based on patient's age to complete this topic MENINGOCOCCAL VACCINE IMM Aged Out No longer eligible based on patient's age to complete this topic documented as of this encounter Goals Goal Patient Goal Associated Recent Patient-Stated? Author Type Problems Progress Blood Pressure Blood Pressure Essential 130/60 No Smyth, < 140/90 hypertension, (10/25/2019 Gray Herndon, benign 9:12 AM EST) Note: Hypertension Care Plan Based on the patient's clinical history and according to JNC 8 guidelines target blood pressure goal is less than 140/90. Based on the patient's last blood pressure of BP: 118/70 mmHg the patient is at at goal. As your provider, it is important that I advise you regarding: your current medications and help you with any challenges you may face taking your medications as directed (ex. instructions, cost, side effects, and interactions). Important lifestyle changes: exercise, weight reduction and dietary sodium reduction your clinical goals and how you can achieve success: weight reduction and exercise plan medication management: N/A diet only patient education/self-management tools provided: Yes To successfully manage my Hypertension I will: monitor my blood pressure daily, understanding that my goal is less than 140/ 90 per my healthcare provider's recommendation. I will schedule an appointment with my provider if consistent abnormal readings greater than 160/100. take medications every day as prescribed by my healthcare provider and if unable to take them I will discuss with my provider. monitor for symptoms of chest pain, chest tightness/pressure, irregular heartbeat, persistent dizziness, radiating arm pain, and neck or jaw pain. If any of these symptoms are noticed I will seek medical attention immediately by calling 911 exercise/walk 30 minutes 6 day(s) per week. If I experience chest pain, chest tightness, or shortness of breath, I will seek medical attention immediately. follow a diet rich in fruits, vegetables, and low-fat dairy products with reduced content of saturated & total fat. I will reduce my sodium intake daily. An example is the DASH diet. To obtain more information please refer to the DASH Eating Plan listed in Educational Resources. record my blood pressure results. [employer] is safe and secure way for you to do this in your medical record online. try to obtain an ideal body weight. My recent weight was Weight: 182 lb ( 82.555 kg). My weight loss goal for my next office visit is 170 pounds . limit alcohol consumption. For men two drinks per day and women one drink per day. if currently smoking, will discuss how to quit smoking with my healthcare provider and work towards quitting. Educational Resources: National Heart, Lung, & Blood [place] http://nhlbi.nih.gov/hbp/index.html The DASH Diet Eating Plan http://www.nhlbi.nih.gov/health/health-topics/ topics/dash/ Academy of Nutrition & DIetetics http://eatright.org National Smoking Cessation Site http://smokefree.gov Blood Pressure Blood Pressure Essential 130/60 (10/25/2019 No Smyth, < 140/90 hypertension, benign 9:12 AM EST) Gray Herndon MD Note: Hypertension Care Plan Based on the patient's clinical history and according to JNC 8 guidelines target blood pressure goal is less than 140/90. Based on the patient's last blood pressure of BP: 112/70 mmHg the patient is at at goal. As your provider, it is important that I advise you regarding: your current medications and help you with any challenges you may face taking your medications as directed (ex. instructions, cost, side effects, and interactions). Important lifestyle changes: dietary sodium reduction and medication compliance your clinical goals and how you can achieve success: weight reduction, exercise plan and diet improvements medication management: N/A diet only patient education/self-management tools provided: Current self-management tools adequate To successfully manage my Hypertension I will: monitor my blood pressure daily, understanding that my goal is less than 140/ 90 per my healthcare provider's recommendation. I will schedule an appointment with my provider if consistent abnormal readings greater than 160/100. take medications every day as prescribed by my healthcare provider and if unable to take them I will discuss with my provider. monitor for symptoms of chest pain, chest tightness/pressure, irregular heartbeat, persistent dizziness, radiating arm pain, and neck or jaw pain. If any of these symptoms are noticed I will seek medical attention immediately by calling 911 exercise/walk 30 minutes 6 day(s) per week. If I experience chest pain, chest tightness, or shortness of breath, I will seek medical attention immediately. follow a diet rich in fruits, vegetables, and low-fat dairy products with reduced content of saturated & total fat. I will reduce my sodium intake daily. An example is the DASH diet. To obtain more information please refer to the DASH Eating Plan listed in Educational Resources. record my blood pressure results. [employer] is safe and secure way for you to do this in your medical record online. try to obtain an ideal body weight. My recent weight was Weight: 181 lb ( 82.101 kg). My weight loss goal for my next office visit is 170 pounds . limit alcohol consumption. For men two drinks per day and women one drink per day. if currently smoking, will discuss how to quit smoking with my healthcare provider and work towards quitting. Educational Resources: National Heart, Lung, & Blood [place] http://nhlbi.nih.gov/hbp/index.html The DASH Diet Eating Plan http://www.nhlbi.nih.gov/health/health-topics/ topics/dash/ Academy of Nutrition & DIetetics http://eatright.org National Smoking Cessation Site http://smokefree.gov Blood Pressure < Blood Pressure 130/60 (10/25/2019 9:12 No Gray Rodríguez, 150/90 AM AUGUSTIN CARDENAS Note: This is an individualized treatment (blood pressure) goal for Emigdio Carrasco: Displayed above (on the left) is your goal for blood pressure control. Your most recent blood pressure is also shown above, on the right. You should try to achieve blood pressures that are lower than your goal listed above (on the left). Weight increase vs. 18 mo CHF 4 (10/25/2019 9:12 AM EST) Gray Walters MD min (lbs) < 5 Note: This is an individualized treatment (congestive heart failure, CHF) goal for Emigdio Carrasco: Displayed above (on the right) is how many pounds you are in excess of your lowest weight over the past 18 months. Note that lower numbers are better. Excessive weight gain often indicates fluid reten tion and worsening heart failure. You should contact your doctor immediately if the above number is too high (above your goal, the number on the left). Depression screen (PHQ-9) total score < 5 Depression Gray Walters MD Note: This is an individualized treatment (depression) goal for Emigdio Carrasco: Displayed above is your goal for a depression screening (PHQ-9) score that would indicate good control of your depression. Weight loss vs. 18 mo Lifestyle 1 (10/25/2019 9:12 AM Gray Walters MD max (lbs) >= 10 EST) Note: This is an individualized lifestyle goal for Emigdio Carrasco: Your body mass index (BMI) is more than 30. You should lose weight. A reasonable starting goal is to lose 10 pounds. Displayed above is how many pounds you have lost thus far towards your 10 pound weight loss goal. Keep a regular sleep schedule Lifestyle Gray Walters MD Note: This is an individualized lifestyle goal for Emigdio Carrasco: Please maintain a regular sleep schedule. This may help with some symptoms of depression. Consume a aw-rnkak-sylp diet Lifestyle Gray Walters MD Note: This is an individualized lifestyle goal for Emigdio Carrasco: Please do not add additional salt to your food. Additional salt may lead to fluid retention and worsen your congestive heart failure. Take all prescribed medications as Self-management Gray Walters MD directed Note: This is an individualized self-management goal for Emigdio Carrasco: Please take all prescribed medications as directed. 1. Do not skip doses. If you cannot afford your medications, talk with your doctor. 2. Use a pill reminder system such as a pill box if needed. Your pharmacist can help you with this. 3. Contact your Pharmacy 5 days before your medication runs out. If you cannot take your medications for any reasons, talk with your doctor. 4. Please bring all of your medication bottles and inhalers (or a list of all your medications/inhalers) with you to every visit. Potential barriers to meeting all of your care plan goals will continue to be addressed on an ongoing basis. Check your weight daily Self-management Gray Walters MD Note: This is an individualized self-management goal for Emigdio Carrasco: Please check your weight daily. Refer to the accompanying CHF treatment goal and call your doctor immediately for further instructions on how to respond to unexpected weight gain. documented as of this encounter Implants Implanted Type Area Salon Supervisor Device Shelf Model / Identifier Expiration Serial / Lot Date Tissue Valve Aortic [employer] [id number] / Implanted: Qty: 1 on 12/22/2012 at [facility] Daily Deals [facility]. 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
[2019-11-18 08:13] VITALS: BP 134/73
--- NOTE | 2019-11-18 08:17 | UC ---
Neck Pain HPI - HPI Summary HPI Summary: 79 year old male presents with complaint of left sided neck pain on/off for 2 months, no known injury. He notes increased pain with turning head to left. Notes pain is increasing over the past 2 days. Denies radiation of pain down his arm. Sx are worse when he lays down at night. Notes grinding when he turns his head. Saw a Chiropractor once a few weeks ago without improvement of sx. States Aleve initially helped some but not last night. No associated chest pain nor sob. - History of Current Complaint Chief Complaint: UCHeadache Stated Complaint: NECK PAIN Time Seen by Provider: 11/18/19 07:56 Hx Obtained From: Patient Onset/Duration: Gradual Onset, Lasting Weeks - ~8 Pain Intensity: 6 Character: Stiff Aggravating Factors: Movement - increased pain with moving his head to the left. Associated Signs & Symptoms: Negative: Swelling, Redness, Fever, Nuchal Rigity, Weakness, Headache, Paresthesia - Allergies/Home Medications Allergies/Adverse Reactions: Allergies Allergy/AdvReac Type Severity Reaction Status Date / Time No Known Allergies Allergy Verified 11/18/19 08:13 Home Medications: Home Medications Ezetimibe TAB* [Zetia TAB*] 10 mg PO DAILY 11/18/19 [History Confirmed 11/18/19] Magnesium Oxide,Aspartate,Citr [Triple Magnesium Complex] 400 mg PO DAILY [History Confirmed 11/18/19] Naproxen Sodium [Aleve] 440 mg PO BID 11/18/19 [History Confirmed 11/18/19] PMH/Surg Hx/FS Hx/Imm Hx Previously Healthy: Yes Cardiovascular History: Hypertension, Other - Aortic valve replacement. - Surgical History Surgical History: Yes Surgery Procedure, Year, and Place: 1993 BILATERAL KNEE REPLACEMENT, [place]. 2004 LAPAROSCOPIC BILATERAL INGUINAL HERNIA REPAIR WITH MESH, [facility] [place]. 2004 OPEN REPAIR RECURRENT RIGHT INGUINAL HERNIA WITH MESH, [facility] [place]. 2012 OPEN HEART SURGERY WITH AORTIC VALVE REPLACEMENT, [place], [place]. 2012 SEPTOPLASTY, INFERIOR TURBINATE REDUCTION AND OUTFRACTURE, [facility] [place]. 2013 LEFT ROTATOR CUFF REPAIR, [place]. BILATERAL CATARACT EXTRACTION WITH IOL IMPLANTS, [facility] [place]. COLONOSCOPY, [place] - Family History Known Family History: Positive: Cardiac Disease, Hypertension - Social History Alcohol Use: Occasionally Substance Use Type: None Smoking Status (MU): Never Smoked Tobacco Type: Cigarettes Amount Used/How Often: < 1PPD X 5-6 YEARS Length of Time of Smoking/Using Tobacco: 5-6 YEARS Have You Smoked in the Last Year: No When Did the Patient Quit Smoking/Using Tobacco: - Immunization History Most Recent Tetanus Shot: 2012 Review of Systems All Other Systems Reviewed And Are Negative: Yes Constitutional: Positive: Negative Skin: Positive: Negative Eyes: Positive: Negative ENT: Positive: Negative Respiratory: Positive: Negative Cardiovascular: Positive: Negative Gastrointestinal: Positive: Negative Genitourinary: Positive: Negative Motor: Positive: Decreased ROM - turning his head to the left. Neurological: Negative: Headache, Weakness, Paresthesia, Numbness Psychological: Positive: Negative Is Patient Immunocompromised?: No Physical Exam Appearance: Well-Appearing Vital Signs: Initial Vital Signs Temp 98.5 F 11/18/19 08:05 Pulse 80 11/18/19 08:05 Resp 22 11/18/19 08:05 BP 134/73 11/18/19 08:05 Pulse Ox 97 11/18/19 08:05 Vital Signs Reviewed: Yes Eye Exam: Normal ENT: Positive: Normal ENT inspection Neck: Positive: Supple, No Lymphadenopathy, Tenderness @ - left trapezius muscle. Nontender over c-spine.. Negative: Nuchal Rigidity, Enlarged Nodes @ Respiratory: Positive: Chest non-tender, Lungs clear, Normal breath sounds, No respiratory distress. Negative: Crackles, Rhonchi, Wheezing Cardiovascular: Positive: RRR, No Murmur, Brisk Capillary Refill Abdomen Description: Positive: Nontender, Soft Musculoskeletal: Positive: Strength Intact, No Edema, ROM Limited @ - rotation of head to the left. Neurological: Positive: Alert, Muscle Tone Normal Psychological Exam: Normal Skin: Negative: Rashes Diagnostics - Radiology No standard instances Radiology Interpretation Completed By: Radiologist Summary of Radiographic Findings: Export Documents Clerk: Jose Roberto Fowler Daniel, ( [id number]) Sailing Instructor: MAROLN (MARLON) Report Date: 11/18/2019 08:43: 00 Report Status: Final Start of Report Content Patient Name: JUSTEN YORK Medical Record#: [id number] Ordering Physician: Son Benavides MD Acct.#: [id number] : 1940 Age: 79 Sex: M Location: [facility] [place] Exam Date: 11/18/19821 ADM Status: REG ER Order Information: SP CERVICAL 4+VWS Accession Number: [id number] CPT: 08833 HISTORY : left cervical pain COMPARISONS: None relevant available at the time of dictation. VIEWS: 5, Frontal, lateral, open-mouth odontoid, and bilateral oblique views of the cervical spine. FINDINGS: The cervical spine is visualized from the skull base through C7. ALIGNMENT: There is straightening of the normal cervical lordosis. VERTEBRAL BODIES: There is diffuse osteopenia. Multilevel anterolateral marginal osteophyte formation most pronounced at C4-C5 and C5-C6. JOINTS: There is diffuse uncovertebral and facet osteoarthritis. There is mild diffuse neural foraminal narrowing bilaterally. INTERVERTEBRAL DISCS: There is diffuse loss of intervertebral disc height. SOFT TISSUE: The prevertebral soft tissues are normal. OTHER: The skull base is normal. The lung apices are clear. IMPRESSION: OSTEOPENIA DEGENERATIVE DISC DISEASE AND OSTEOARTHRITIS. <Electronically signed by Jose Roberto Fowler MD in OV> 11/18/19838 Dictated By: Jose Roberto Fowler MD Dictated Date/Time: 11/18/19837 Transcribed Date/Time: 11/18/19837 Copy to: CC:Gray Rodríguez MD; Son Benavides MD Imaging - [facility] Imaging [facility] Urgent [facility] [address] [address] ph ) ph ([phone]) ph ([phone]) End of Report Content ==== Neck Pain Course/Dx - Differential Dx/Diagnosis Provider Diagnosis: Strain, cervical, Degenerative disc disease, cervical Discharge ED - Sign-Out/Discharge Documenting (check all that apply): Patient Departure All imaging exams completed and their final reports reviewed: Yes - Discharge Plan Condition: Stable Disposition: HOME Patient Education Materials: Cervical Strain (ED) Referrals: Gray Rodríguez MD [Primary Care Provider] - Additional Instructions: Recommend Outpatient Physical Therapy. Please contact the phone number provided. If you do not notice improvement with physical therapy, follow-up with your Primary Care Physician. - Billing Disposition and Condition Condition: STABLE Disposition: Home
== END 2019-11-18 09:03 | disposition home or self-care (01) ==
LOC: UCCORT 07:52
DX: M50.30 Other cervical disc degeneration, unspecified cervical region (principal); S16.1XXA Strain of muscle, fascia and tendon at neck level, initial encounter; I10 Essential (primary) hypertension; M47.812 Spondylosis without myelopathy or radiculopathy, cervical region; M85.88 Other specified disorders of bone density and structure, other site; Z95.2 Presence of prosthetic heart valve; X58.XXXA Exposure to other specified factors, initial encounter; Y92.9 Unspecified place or not applicable
CPT/HCPCS: 72050; 99211; G0463